=== PATIENT | female | born 1925 | race Caucasian/White ===

== ENCOUNTER 2016-12-05 19:49 | Emergency (ER) | payer OTHER, MEDICARE ==
[2016-12-05 19:57] VITALS: RESP 18
--- NOTE | 2016-12-05 20:38 | EDPHY ---
H & P Time Seen by Provider: 12/05/16 20:29 HPI/ROS: Chief complaint. Elevated blood pressure HPI. 89-year-old female with history of hypertension presents with elevated blood pressure. She was without symptoms and routinely takes her blood pressure in the evening. Tonight she found to be approximately 200 systolic. She has had a recent change in her blood pressure medications and it sounds like addition of amlodipine. She also uses hydrochlorothiazide and losartan. Tonight she had no headache and no change in her vision. No chest discomfort or trouble breathing. Shortly after taking her medication around 4 o'clock she had sharp pain in the left upper abdomen however she burped and the pain went away and has not recurred. No weakness or altered sensation to arms or legs. ROS Constitutional. High blood pressure Eyes. no problems with vision ENT. no sore throat, no nasal drainage Cardiovascular. no chest pain Respiratory. no shortness of breath, no cough Abdominal. Brief upper abdominal pain resolved with burping . no problems urinating MS. no calf pain/swelling, no neck/back pain, no joint pain Skin. no rash Lymph. no swollen glands Neuro. no headache, no dizziness, no difficulty walking or with speech Past Medical/Surgical History: [id number] diabetes, hypothyroid, bilateral hip replacement, hypertension, hysterectomy Social History: , nonsmoker, no alcohol Smoking Status: Never smoked Physical Exam: General Appearance: Alert well-developed female mild distress vital signs show an initial blood pressure 252/140 Eyes: Pupils equal and round no pallor or injection. ENT, Mouth: Mucous membranes are moist. Respiratory: There are no retractions, lungs are clear to auscultation. Cardiovascular: Regular rate and rhythm. Gastrointestinal: Abdomen is soft and nontender, no masses, bowel sounds normal. Neurological: Awake and alert, sensory and motor exams grossly normal. Skin: Warm and dry, no rashes. Musculoskeletal: Neck is supple nontender. Extremities symmetrical, full range of motion. Psychiatric: Patient is oriented X 3, there is no agitation. Constitutional: Initial Vital Signs Temperature (C) 36.6 C 12/05/16 19:53 Heart Rate 83 12/05/16 19:53 Respiratory Rate 18 12/05/16 19:53 Blood Pressure 252/140 H 12/05/16 19:53 O2 Sat (%) 95 12/05/16 19:53 O2 Delivery Mode Room Air Allergies/Adverse Reactions: acetaminophen [From Vicodin] Allergy (Verified 12/05/16 19:58) Rash hydrocodone bitartrate [From Vicodin] Allergy (Verified 12/05/16 19:58) Rash Home Medications: Medication Instructions Recorded Hydrochlorothiazide 25 mg PO DAILY 08/06/12 [Hydrochlorothiazide 25 MG (RX)] Levothyroxine [Synthroid 112 mcg 112 mcg PO SUTUTHSA 08/06/12 (RX)] Levothyroxine [Synthroid 125 mcg 125 mcg PO MWF 08/06/12 (RX)] Losartan Potassium [Cozaar 50 mg 50 mg PO DAILY 08/06/12 (RX)] Pregabalin [Lyrica 50mg (RX)] 50 mg PO BID 08/06/12 metFORMIN HCL [Glucophage 500 mg 1,000 mg PO BIDMEAL 08/06/12 (RX)] Multivitamins [Tab-A-Se] 1 each PO DAILY 10/01/12 Albuterol [Proventil Inhaler HFA 2 puffs IH Q4 PRN #1 mdi 03/05/14 (*)] Medical Decision Making - Diagnostics EKG Interpretation: EKG interpreted by me shows normal sinus rhythm normal interval. There is left axis deviation. 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 Otherwise no significant ST elevation or depression. No arrhythmia. The rate is 68 No old EKG for comparison Procedures: IV normal saline, monitor. Re-evaluation of blood pressure at 9:00 p.m. shows 229/104 Patient given amlodipine in the emergency department ED Course/Re-evaluation: Re-evaluation 10:05 p.m.--patient is stable and without symptoms. Blood pressure 208/83. The patient and I discussed laboratory an EKG findings. We discussed treatment plan including criteria for return and importance of follow-up and further evaluation. She expresses understanding and agreement Patient also tells me now that she has maybe for gotten to take some of her blood pressure medicines over the last several days Differential Diagnosis: I considered urgent hypertension, end-organ disease. - Data Points Laboratory Results: Laboratory Results 12/05/16 21:20 12/05/16 21:20 12/05/16 12/05/16 21:20 21:20 WBC 8.11 10^3/uL 10^3/uL (3.80-9.50) RBC 4.55 10^6/uL 10^6/uL (4.18-5.33) Hgb 14.5 g/dL g/dL (12.6-16.3) Hct 42.3 % % (38.0-47.0) MCV 93.0 fL fL (81.5-99.8) MCH 31.9 pg pg (27.9-34.1) MCHC 34.3 g/dL g/dL (32.4-36.7) RDW 12.2 % % (11.5-15.2) Plt Count 264 10^3/uL 10^3/uL (150-400) MPV 9.0 fL fL (8.7-11.7) Neut % (Auto) 68.1 % % (39.3-74.2) Lymph % (Auto) 21.6 % % (15.0-45.0) [place] % (Auto) 7.3 % % (4.5-13.0) Eos % (Auto) 1.6 % % (0.6-7.6) Baso % (Auto) 1.0 % % (0.3-1.7) Nucleat RBC Rel Count 0.0 % % (0.0-0.2) Absolute Neuts (auto) 5.53 10^3/uL 10^3/uL (1.70-6.50) Absolute Lymphs (auto) 1.75 10^3/uL 10^3/uL (1.00-3.00) Absolute Monos (auto) 0.59 10^3/uL 10^3/uL (0.30-0.80) Absolute Eos (auto) 0.13 10^3/uL 10^3/uL (0.03-0.40) Absolute Basos (auto) 0.08 10^3/uL 10^3/uL (0.02-0.10) Absolute Nucleated RBC 0.00 10^3/uL 10^3/uL (0-0.01) Immature Gran % 0.4 % % (0.0-1.1) Immature Gran # 0.03 10^3/uL 10^3/uL (0.00-0.10) Sodium 134 mEq/L mEq/L (134-144) Potassium 4.2 mEq/L mEq/L (3.5-5.2) Chloride 95 mEq/L L mEq/L (97-110) Carbon Dioxide 25 mEq/l mEq/l (22-31) Anion Gap 14 mEq/L mEq/L (8-16) BUN 27 mg/dL H mg/dL (7-23) Creatinine 1.1 mg/dL H mg/dL (0.6-1.0) Estimated GFR 47 Glucose 125 mg/dL H mg/dL (70-100) Calcium 10.2 mg/dL mg/dL (8.5-10.4) Troponin I < 0.012 ng/mL ng/mL (0-0.034) Medications Given: Discontinued Medications Amlodipine Besylate (Norvasc) 5 mg PO EDNOW ONE Stop: 12/05/16 20:51 Last Admin: 12/05/16 21:17 Dose: 5 mg Amlodipine Besylate (Norvasc) 10 mg PO EDNOW ONE Stop: 12/05/16 20:59 Last Admin: 12/05/16 21:22 Dose: Not Given Departure - Departure Disposition: Home, Routine, Self-Care Clinical Impression: Hypertension Qualifiers: Hypertension type: essential hypertension Qualified Code(s): I10 - Essential ( primary) hypertension Condition: Good Instructions: Hypertension (ED) Additional Instructions: Continue your medications as prescribed especially the blood pressure medication. Return for chest discomfort or trouble breathing. Follow up with your regular physician in the next 2-3 days for further evaluation and management of your blood pressure Referrals: Asya Silva MD [Primary Care Provider] - 2-3 days, call for appt.
--- NOTE | 2016-12-05 20:40 | CPEKG ---
Heart Rate: 68 RR Interval: 882 P-R Interval: 156 QRSD Interval: 84 QT Interval: 400 QTC Interval: 426 P Matteson: 71 QRS Matteson: 10 T Wave Matteson: 41 EKG Severity - ABNORMAL ECG - EKG Impression: SINUS RHYTHM EKG Impression: ANTERIOR INFARCT, AGE INDETERMINATE Electronically Signed By: Remberto Flores 05-Dec-2016 21:09:19
[2016-12-05] MEDS ORDERED: amLODIPine BESYLATE 5 MG TAB PO ONE ×2 (20:50→20:58)
[2016-12-05 21:27] LABS: % IMMATURE GRANULYOCYTES 0.4 % (0.0-1.1); ABSOLUTE IMMATURE GRANULOCYTES 0.03 10^3/uL (0.00-0.10); ADD DIFF? NO; ADD MORPH? NO; ADD SCAN? NO; ATYPICAL LYMPHOCYTE FLAG 0 (0-99); FRAGMENT RBC FLAG 0 (0-99); HEMATOCRIT 42.3 % (38.0-47.0); HEMOGLOBIN 14.5 g/dL (12.6-16.3); LEFT SHIFT FLG 0 (0-99); LIPEMIA HEMOLYSIS FLAG 90 (0-99); MEAN CELL HEMOGLOBIN 31.9 pg (27.9-34.1); MEAN CELL HEMOGLOBIN CONCENTR. 34.3 g/dL (32.4-36.7); PLATELET CLUMPS FLAG 10 (0-99); PLATELET COUNT 264 10^3/uL (150-400); RED BLOOD CELL COUNT 4.55 10^6/uL (4.18-5.33); RED CELL DISTRIBUTION WIDTH 12.2 % (11.5-15.2)
[2016-12-05 21:36] LABS: ANION GAP 14 mEq/L (8-16); CALCIUM 10.2 mg/dL (8.5-10.4); CARBON DIOXIDE 25 mEq/l (22-31); CHLORIDE 95 mEq/L (97-110); CREATININE 1.1 mg/dL (0.6-1.0); GLOMERULAR FILTRATION RATE 47; GLUCOSE 125 mg/dL (70-100); POTASSIUM 4.2 mEq/L (3.5-5.2); SODIUM 134 mEq/L (134-144)
[2016-12-05 21:48] LABS: TROPONIN I < 0.012 ng/mL (0-0.034)
[2016-12-05 22:31] VITALS: BP 223/80; PULSE 75; TEMP 98.1; O2SAT 94
== END 2016-12-05 22:31 | disposition home or self-care (01) ==
DX: I10 Essential (primary) hypertension (principal); E11.9 Type 2 diabetes mellitus without complications; Z79.84 Long term (current) use of oral hypoglycemic drugs

== ENCOUNTER → 2017-04-24 | Outpatient (CLI) | payer OTHER, MEDICARE | LOC: BHFA 14:45 | PROVIDERS: ATTEND Internal Medicine Cardiovascular Disease | DX: I10 Essential (primary) hypertension (principal) ==